=== PATIENT | female | born 1995 | race Caucasian/White ===

== ENCOUNTER 2021-10-29 03:17 | Emergency (ER) | payer SELFPAY ==
[~2021-10-29] VITALS: Ht 162.6 cm; Wt 55.9 kg
[2021-10-29 03:24] VITALS: BP 151/84
== END 2021-10-29 04:37 | disposition left against medical advice (07) ==
LOC: EDBD 03:17 → M ED 03:17
DX: Z53.21 Procedure and treatment not carried out due to patient leaving prior to being seen by health care provider (principal)

== ENCOUNTER → 2021-12-04 | Outpatient (CLI) | payer OTHER, SELFPAY | LOC: M WHC 07:43 | PROVIDERS: ATTEND Family Medicine | DX: Z12.31 Encounter for screening mammogram for malignant neoplasm of breast (principal); N64.52 Nipple discharge | CPT/HCPCS: 76642; 77066; G0279 ==

== ENCOUNTER 2022-01-25 14:05 | Emergency (ER) | payer OTHER ==
[~2022-01-25] VITALS: Ht 162.6 cm; Wt 56.6 kg
[2022-01-25 14:06] VITALS: BP 132/84
== END 2022-01-25 20:00 | disposition left against medical advice (07) ==
LOC: M ED 14:05
DX: Z53.21 Procedure and treatment not carried out due to patient leaving prior to being seen by health care provider (principal)